=== PATIENT | female | born 1965 | race Caucasian/White ===

== ENCOUNTER → 2018-06-30 10:47 | Outpatient (CLI) | payer OTHER ==
[2018-06-30 12:19] LABS: BASOPHILS 0.2 % (0-2); EOSINOPHILS 0.9 % (0-7); HEMATOCRIT 37.8 % (36.0-48.0); HEMOGLOBIN 12.9 g/dL (12-16); LYMPHOCYTES 34.6 % (15-50); MCH 31.5 pg (26.0-34.0); MCHC 34.1 g/dL (31.0-37.0); MCV 92.2 fL (80.0-100.0); MEAN PLATELET VOLUME 8.6 fL (7.4-10.4); MONOCYTES 7.3 % (2-11); PLATELET COUNT 239 10x3/uL (130-400); RDW 12.7 % (11.5-14.5); WBC 4.4 10x3/uL (4.8-10.8)
[2018-07-02 21:07] LABS: IMMUNOGLOBULIN E 21 IU/mL (0-100)
== END | disposition home or self-care (01) ==
LOC: D.RT 10:47
PROVIDERS: Internal Medicine Pulmonary Disease
DX: J45.909 Unspecified asthma, uncomplicated (principal)

== ENCOUNTER → 2018-09-04 11:13 | Outpatient (CLI) | payer OTHER | END | disposition home or self-care (01) | LOC: D.RAD 11:13 | DX: R91.1 Solitary pulmonary nodule (principal) ==